=== PATIENT | female | born 1975 | race Asian ===

== ENCOUNTER 2017-05-02 21:35 | Emergency (ER) | payer OTHER ==
[~2017-05-02] VITALS: Ht 170.2 cm; Wt 65.8 kg
[2017-05-02 22:21] LABS: PLATELET COUNT 247 K/uL (152-353)
[2017-05-02 22:25] LABS: POTASSIUM 3.4 mmol/L (3.6-5.2); SODIUM 139 mmol/L (136-145)
[2017-05-02 23:02] VITALS: BP 137/88; TEMP 98.4
== END 2017-05-02 23:06 | disposition home or self-care (01) ==
LOC: ED 21:35
DX: E87.6 Hypokalemia (principal)
CPT/HCPCS: 36415; 80053; 84484; 85027; 93005; 99283

== ENCOUNTER 2019-08-02 00:46 | Emergency (ER) | payer OTHER ==
[~2019-08-02] VITALS: Ht 167.6 cm; Wt 62.6 kg
[2019-08-02 02:10] VITALS: BP 137/78; TEMP 98.6
== END 2019-08-02 02:14 | disposition home or self-care (01) ==
LOC: ED 00:46
DX: B34.9 Viral infection, unspecified (principal)
CPT/HCPCS: 81000; 81025; 87502; 87651; 99283

== ENCOUNTER 2019-10-05 21:12 | Emergency (ER) | payer OTHER ==
[~2019-10-05] VITALS: Ht 167.6 cm; Wt 61.2 kg
[2019-10-05 22:24] VITALS: BP 125/84; TEMP 98.8
== END 2019-10-05 22:24 | disposition home or self-care (01) ==
LOC: ED 21:12
DX: G43.909 Migraine, unspecified, not intractable, without status migrainosus (principal)
CPT/HCPCS: 96372; 99282; J1885

== ENCOUNTER 2019-10-07 20:23 | Emergency (ER) | payer BC ==
[~2019-10-07] VITALS: Ht 167.6 cm; Wt 62.1 kg
[2019-10-07 22:16] VITALS: BP 129/77; TEMP 97.9
== END 2019-10-07 22:20 | disposition home or self-care (01) ==
LOC: ED 20:23
PROC: 0HQGXZZ Repair Left Hand Skin, External Approach (ICD-10-PCS; principal; 2019-10-07)
DX: S61.012A Laceration without foreign body of left thumb without damage to nail, initial encounter (principal); S61.215A Laceration without foreign body of left ring finger without damage to nail, initial encounter; X99.1XXA Assault by knife, initial encounter; Y92.89 Other specified places as the place of occurrence of the external cause
CPT/HCPCS: 90471; 90715; 96372; 99283; J0696

== ENCOUNTER 2021-01-02 19:51 | Emergency (ER) | payer BC ==
[~2021-01-02] VITALS: Ht 167.6 cm; Wt 61.7 kg
[2021-01-02 19:59] VITALS: BP 117/73; TEMP 99
== END 2021-01-02 21:39 | disposition home or self-care (01) ==
LOC: ED 19:51
DX: S39.011A Strain of muscle, fascia and tendon of abdomen, initial encounter (principal); V89.0XXA Person injured in unspecified motor-vehicle accident, nontraffic, initial encounter; Y92.89 Other specified places as the place of occurrence of the external cause
CPT/HCPCS: 99283

== ENCOUNTER 2021-01-20 09:30 | Outpatient (CLI) | payer BC | END 2021-01-20 19:29 | disposition home or self-care (01) | LOC: CT 09:30 | PROVIDERS: ATTEND Nurse Practitioner Family | DX: R10.9 Unspecified abdominal pain (principal) | CPT/HCPCS: Q9963 ==

== ENCOUNTER 2021-03-03 10:34 | Outpatient (CLI) | payer BC | END 2021-03-03 19:56 | disposition home or self-care (01) | LOC: LABW 10:34 → CT 10:34 | PROVIDERS: ATTEND Nurse Practitioner Family | DX: R10.32 Left lower quadrant pain (principal) | CPT/HCPCS: Q9963 ==

== ENCOUNTER 2021-11-25 11:32 | Emergency (ER) | payer BC ==
[~2021-11-25] VITALS: Ht 167.6 cm; Wt 63.5 kg
[2021-11-25 14:40] VITALS: BP 128/78; TEMP 98
== END 2021-11-25 14:40 | disposition home or self-care (01) ==
LOC: ED 11:32
DX: R22.0 Localized swelling, mass and lump, head (principal); W20.8XXA Other cause of strike by thrown, projected or falling object, initial encounter; Y92.59 Other trade areas as the place of occurrence of the external cause
CPT/HCPCS: 96372; 99283; J0696; J1885

== ENCOUNTER 2022-04-04 08:43 | Outpatient (CLI) | payer BC | END 2022-04-04 23:56 | disposition home or self-care (01) | LOC: CT 08:43 | PROVIDERS: ATTEND Nurse Practitioner Family | DX: S09.8XXD Other specified injuries of head, subsequent encounter (principal); Y92.89 Other specified places as the place of occurrence of the external cause | CPT/HCPCS: Q9963 ==

== ENCOUNTER 2022-06-12 08:31 | Outpatient (CLI) | payer BC | END 2022-06-12 19:29 | disposition home or self-care (01) | LOC: MRI 08:31 | PROVIDERS: ATTEND Nurse Practitioner Family | DX: S01.03XD Puncture wound without foreign body of scalp, subsequent encounter (principal); Y92.89 Other specified places as the place of occurrence of the external cause ==

== ENCOUNTER 2022-08-27 17:36 | Emergency (ER) | payer BC ==
[~2022-08-27] VITALS: Ht 167.6 cm; Wt 54.0 kg
[2022-08-27 17:47] VITALS: BP 102/77; TEMP 98.1
== END 2022-08-27 19:35 | disposition home or self-care (01) ==
LOC: ED 17:36
DX: R11.0 Nausea (principal); R51.9 Headache, unspecified; Z87.828 Personal history of other (healed) physical injury and trauma
CPT/HCPCS: 81025; 99283